=== PATIENT | female | born 1945 | race Two or more races ===

== ENCOUNTER → 2022-08-31 | Outpatient (CLI) | payer OTHER ==
[~2022-08-31] VITALS: Ht 154.9 cm; Wt 62.1 kg
[~2022-08-31] MED LIST: AMLO1TAB22 PO; ASPI81CH59 PO; CHOL25CH3 PO; CINN500T PO; CYAN50008 PO; FLUO20TA36 PO; FOLI-119 PO; GINK120C3 PO; GLIP5TAB12 PO; LOSA50TA46 PO; MAGN400T40 OR; METF-372 PO; METH2.5T PO; METH50006 SL; MULT-1166 PO; MULT1TAB70 PO; OMEG-28 PO; PRE5T PO; SIMV20TA20 PO; THIA100T26 PO; TRAZ1TAB12 PO; TURM500C3 OR; VITA-89 PO
[2022-08-31 11:20] LABS: Basophils # (auto) 0.1 10 ^3/uL (0-0.2); Basophils % (auto) 0.7 % (0.0-2.0); Eosinophils # (auto) 0 10 ^3/uL (0-0.8); Eosinophils % (auto) 0.3 % (0.0-7.0); Hematocrit 39.6 % (36.0-46.0); Hemoglobin 13.6 g/dL (12.2-16.2); Lymphocytes # (auto) 1.4 10 ^3/uL (0.4-5.4); Lymphocytes % (auto) 17.9 % (10.0-50.0); Mean Corpuscular Hgb Conc. 34.2 g/dL (32.0-36.0); Mean Corpuscular Volume 96.5 fL (80.0-100.0); Monocytes # (auto) 0.4 10 ^3/uL (0-1.3); Monocytes % (auto) 5.3 % (0.0-12.0); Neutrophils # (auto) 5.8 10 ^3/uL (1.6-8.6); Neutrophils % (auto) 75.8 % (37.0-80.0); Red Blood Cells 4.11 10^6/uL (4.0-5.20); Red Cell Distribution Width 15.7 % (11.8-14.3); White Blood Cell 7.7 10^3/uL (4.4-10.8)
[2022-08-31 11:26] LABS: INR 1.07 (0.9-1.15); Partial Thromboplastin Time 28.2 SEC (24.5-34.5); Prothrombin Time 11.2 sec (9.3-11.8)
[2022-08-31 11:32] LABS: Urine Bacteria MOD /hpf (None Seen); Urine Blood Negative /uL (Negative); Urine Clarity Clear (Clear); Urine Color Yellow (Yellow); Urine Hyaline Cast FEW /lpf (0 - 2); Urine Mucus FEW (None Seen); Urine Protein, UAD Negative (Negative); Urine Specific Gravity 1.011 (1.001-1.035); Urine Urobilinogen Normal (Negative); Urine WBC 32 /hpf (0 - 5); Urine pH 7.5 (5.0-8.0)
[2022-08-31 11:40] LABS: BUN/Creatinine Ratio 14.7 (10.0-20.0); Bilirubin, Total 0.6 mg/dL (0.2-1.0); Calcium 9.8 mg/dL (8.5-10.1); Total Protein 7.6 g/dL (6.4-8.2)
== END | disposition home or self-care (01) ==
LOC: SUR 09:27 → EDSTATUS 09-01 09:30
PROVIDERS: ATTEND Orthopaedic Surgery
DX: Z01.812 Encounter for preprocedural laboratory examination (principal); Z79.899 Other long term (current) drug therapy
CPT/HCPCS: 36415; 80053; 81001; 85025; 85610; 85730; 86850; 86900; 86901

== ENCOUNTER 2022-11-29 08:28 | Inpatient (IN) | payer OTHER ==
[2022-11-25 10:31] LABS: Basophils # (auto) 0.1 10 ^3/uL (0-0.2); Basophils % (auto) 0.8 % (0.0-2.0); Eosinophils # (auto) 0 10 ^3/uL (0-0.8); Eosinophils % (auto) 0.4 % (0.0-7.0); Hemoglobin 13.3 g/dL (12.2-16.2); Lymphocytes # (auto) 1.9 10 ^3/uL (0.4-5.4); Lymphocytes % (auto) 28.1 % (10.0-50.0); Mean Corpuscular Hemoglobin 32.7 pg (28.0-32.0); Mean Corpuscular Hgb Conc. 34.9 g/dL (32.0-36.0); Mean Corpuscular Volume 93.6 fL (80.0-100.0); Monocytes # (auto) 0.4 10 ^3/uL (0-1.3); Monocytes % (auto) 5.4 % (0.0-12.0); Neutrophils # (auto) 4.3 10 ^3/uL (1.6-8.6); Neutrophils % (auto) 65.3 % (37.0-80.0); Red Blood Cells 4.06 10^6/uL (4.0-5.20); Red Cell Distribution Width 15.5 % (11.8-14.3); White Blood Cell 6.7 10^3/uL (4.4-10.8)
[2022-11-25 10:36] LABS: INR 1.11 (0.9-1.15); Prothrombin Time 11.6 sec (9.3-11.8)
[2022-11-25 10:39] LABS: Alanine Aminotransferase 15 U/L (7-40); Albumin 4.7 g/dL (3.2-4.8); Alkaline Phosphatase 56 U/L (46-116); Anion Gap 9 (5-15); Aspartate Aminotransferase 19 U/L (13-40); BUN/Creatinine Ratio 9.9 (10.0-20.0); Bilirubin, Total 0.9 mg/dL (0.2-1.0); Blood Urea Nitrogen 9 mg/dL (9-23); Calcium 9.6 mg/dL (8.5-10.1); Carbon Dioxide 25 mmol/L (20-30); Chloride 102 mmol/L (98-107); Glucose 103 mg/dL (74-106); Potassium 4.4 mmol/L (3.5-5.1); Sodium 136 mmol/L (136-145); Total Protein 7.5 g/dL (5.7-8.2)
[2022-11-25 10:42] LABS: Urine Bacteria MOD /hpf (None Seen); Urine Blood Negative /uL (Negative); Urine Clarity Clear (Clear); Urine Color Colorless (Yellow); Urine Protein, UAD Negative (Negative); Urine Specific Gravity 1.012 (1.001-1.035); Urine Urobilinogen Normal (Negative); Urine WBC 5 /hpf (0 - 5); Urine pH 6.5 (5.0-8.0)
[~2022-11-29] VITALS: Ht 157.5 cm; Wt 61.4 kg
[~2022-11-29 08:28] MED LIST changes: -AMLO1TAB22 PO; -METH2.5T PO; -PRE5T PO
[2022-11-29 11:40] VITALS: RESP 23; O2SAT 100
[2022-11-29] MEDS ORDERED: VANCOMYCIN HCL 1000 MG VL ONE (11:50)
[2022-11-29] MEDS ORDERED: TRANEXAMIC ACID 20 ML ONE (11:59)
[2022-11-29] MEDS ORDERED: SUCCINYLCHOLINE CHLORIDE 20 MG/ML 10ML VIAL IV ONE (12:24)
[2022-11-29] MEDS ORDERED: fentaNYL CITRATE 5 ML ONE (12:27)
[2022-11-29] MEDS ORDERED: fentaNYL CITRATE 100 MCG/2 ML VL ONE ×2 (12:29→14:41)
[2022-11-29] MEDS ORDERED: PROPOFOL 10 MG/ML 20 ML IV ONE ×3 (12:31→12:34)
[2022-11-29] MEDS ORDERED: MORPHINE SULFATE INJ 2 MG/ml SYRG IV PRN ×2 (13:00)
[2022-11-29] MEDS ORDERED: NITROGLYCERIN 0.4 MG SL TAB SL PRN (13:00)
[2022-11-29] MEDS ORDERED: ONDANSETRON HCL 4 MG/2 ML VIAL IV PRN ×2 (13:00→16:15)
[2022-11-29] MEDS ORDERED: ONDANSETRON HCL 4 MG/2 ML VIAL ONE (13:08)
[2022-11-29] MEDS ORDERED: DexAMETHasone SOD PHOS 10MG/1ML VIAL INJ ONE (13:08)
[2022-11-29] MEDS ORDERED: ePHEDrine SULFATE 50 MG/ML AMP ONE (13:09)
[2022-11-29] MEDS ORDERED: PHENYLEPHRINE HCL 10 MG/ML VL ONE (13:38)
[2022-11-29] MEDS: CYCLOBENZAPRINE HCL 10 MG TAB PO SCH ×3 (14:30→21:43)
[2022-11-29] MEDS ORDERED: HYDROmorphone HCL 2 MG/ML VL/or syr IV PRN (16:15)
[2022-11-29] MEDS ORDERED: MEPERIDINE HCL (25 MG/ML) 1ML VIAL IV PRN (16:15)
[2022-11-29] MEDS ORDERED: DEXTROSE (50%) 50ML SYRG IV PRN (16:30)
[2022-11-29] MEDS ORDERED: cefTRIAXone 1GM/50ML D5W 50 ML IV ONE (16:30)
[2022-11-29] MEDS: HYDROcodone-ACET 10/325MG TAB PO PRN (17:00)
[2022-11-29 17:45] VITALS: PULSE 101
[2022-11-29] MEDS: ACCU-CHEK COMFORT CURVE STRIP VI SCH ×2 (17:46→23:30)
[2022-11-29] MEDS: D5W/SOD CHLO 0.9% 1,000 ML IV SCH (17:46)
[2022-11-29] MEDS: InsuLIN REG 1unit/0.01ml Soln (100units/ml) SC SCH ×2 (17:54→23:22)
[2022-11-29 20:20] VITALS: BP 121/54; PULSE 104; PULSE 97; RESP 17; TEMP 97.9; O2SAT 98
[2022-11-29] MEDS: DOCUSATE SOD 100 MG CAP PO SCH (21:43)
[2022-11-29] MEDS: VANCOMYCIN 1GM/250ML 250 ML IV SCH (21:44)
[2022-11-29 23:29] VITALS: BP 121/54; PULSE 104; RESP 17; TEMP 97.9; O2SAT 98
[2022-11-30] VITALS (7 sets, daily range): BP systolic 96–114; BP diastolic 45–47; PULSE 74–94; RESP 16–18; TEMP 98.1–99.4; O2SAT 96–99
[2022-11-30] MEDS: D5W/SOD CHLO 0.9% 1,000 ML IV SCH ×2 (03:44→08:39)
[2022-11-30] MEDS: HYDROcodone-ACET 10/325MG TAB PO PRN ×2 (03:53→17:51)
[2022-11-30] MEDS: ACCU-CHEK COMFORT CURVE STRIP VI SCH ×3 (05:56→17:45)
[2022-11-30] MEDS: CYCLOBENZAPRINE HCL 10 MG TAB PO SCH ×3 (05:56→22:02)
[2022-11-30] MEDS: InsuLIN REG 1unit/0.01ml Soln (100units/ml) SC SCH ×3 (05:56→17:45)
[2022-11-30 07:16] LABS: Basophils # (auto) 0 10 ^3/uL (0-0.2); Basophils % (auto) 0.1 % (0.0-2.0); Eosinophils # (auto) 0 10 ^3/uL (0-0.8); Hematocrit 29.6 % (36.0-46.0); Hemoglobin 10.3 g/dL (12.2-16.2); Lymphocytes # (auto) 1.1 10 ^3/uL (0.4-5.4); Lymphocytes % (auto) 13.9 % (10.0-50.0); Mean Corpuscular Hemoglobin 32.8 pg (28.0-32.0); Mean Corpuscular Hgb Conc. 34.8 g/dL (32.0-36.0); Mean Corpuscular Volume 94.3 fL (80.0-100.0); Monocytes # (auto) 0.4 10 ^3/uL (0-1.3); Monocytes % (auto) 5.3 % (0.0-12.0); Neutrophils # (auto) 6.7 10 ^3/uL (1.6-8.6); Neutrophils % (auto) 80.7 % (37.0-80.0); Red Blood Cells 3.14 10^6/uL (4.0-5.20); Red Cell Distribution Width 15.5 % (11.8-14.3); White Blood Cell 8.3 10^3/uL (4.4-10.8)
[2022-11-30 07:17] LABS: Alanine Aminotransferase 47 U/L (7-40); Albumin 3.4 g/dL (3.2-4.8); Alkaline Phosphatase 45 U/L (46-116); Anion Gap 7 (5-15); Aspartate Aminotransferase 54 U/L (13-40); BUN/Creatinine Ratio 12.5 (10.0-20.0); Blood Urea Nitrogen 8 mg/dL (9-23); Calcium 8.1 mg/dL (8.5-10.1); Carbon Dioxide 24 mmol/L (20-30); Chloride 106 mmol/L (98-107); Glucose 163 mg/dL (74-106); Sodium 137 mmol/L (136-145)
[2022-11-30 07:18] LABS: Bilirubin, Total 0.6 mg/dL (0.2-1.0); Total Protein 5.5 g/dL (5.7-8.2)
[2022-11-30] MEDS: DOCUSATE SOD 100 MG CAP PO SCH ×2 (08:39→22:02)
[2022-11-30] MEDS: cefTRIAXone 1GM/50ML D5W 50 ML IV SCH (08:39)
[2022-11-30] MEDS: VANCOMYCIN 1GM/250ML 250 ML IV SCH (09:51)
[2022-11-30] MEDS ORDERED: LOSARTAN POTASSIUM 50 MG TAB PO SCH (10:00)
[2022-12-01] VITALS (7 sets, daily range): BP systolic 117–143; BP diastolic 50–72; PULSE 82–97; RESP 16–20; TEMP 97.9–99; O2SAT 94–99
[2022-12-01] MEDS: ACCU-CHEK COMFORT CURVE STRIP VI SCH ×5 (01:03→22:13)
[2022-12-01] MEDS: InsuLIN REG 1unit/0.01ml Soln (100units/ml) SC SCH ×5 (06:00→22:19)
[2022-12-01] MEDS: CYCLOBENZAPRINE HCL 10 MG TAB PO SCH ×3 (06:15→22:13)
[2022-12-01 06:45] LABS: Alanine Aminotransferase 29 U/L (7-40); Albumin 3.6 g/dL (3.2-4.8); Alkaline Phosphatase 49 U/L (46-116); Anion Gap 5 (5-15); Aspartate Aminotransferase 26 U/L (13-40); Blood Urea Nitrogen 6 mg/dL (9-23); Calcium 8.5 mg/dL (8.7-10.4); Carbon Dioxide 27 mmol/L (20-30); Chloride 107 mmol/L (98-107); Potassium 3.6 mmol/L (3.5-5.1); Sodium 139 mmol/L (136-145)
[2022-12-01 06:46] LABS: Bilirubin, Total 0.6 mg/dL (0.2-1.0); Total Protein 5.7 g/dL (5.7-8.2)
[2022-12-01 07:02] LABS: Basophils # (auto) 0 10 ^3/uL (0-0.2); Basophils % (auto) 0.4 % (0.0-2.0); Eosinophils # (auto) 0.1 10 ^3/uL (0-0.8); Eosinophils % (auto) 0.7 % (0.0-7.0); Hemoglobin 10.4 g/dL (12.2-16.2); Lymphocytes # (auto) 2.1 10 ^3/uL (0.4-5.4); Lymphocytes % (auto) 28.6 % (10.0-50.0); Mean Corpuscular Hemoglobin 32.5 pg (28.0-32.0); Mean Corpuscular Hgb Conc. 34.6 g/dL (32.0-36.0); Mean Corpuscular Volume 93.9 fL (80.0-100.0); Monocytes # (auto) 0.6 10 ^3/uL (0-1.3); Monocytes % (auto) 7.4 % (0.0-12.0); Neutrophils # (auto) 4.7 10 ^3/uL (1.6-8.6); Neutrophils % (auto) 62.9 % (37.0-80.0); Red Cell Distribution Width 15.3 % (11.8-14.3); White Blood Cell 7.5 10^3/uL (4.4-10.8)
[2022-12-01 07:56] LABS: Glucose 113 mg/dL (74-106)
[2022-12-01] MEDS: DOCUSATE SOD 100 MG CAP PO SCH ×2 (09:04→22:13)
[2022-12-01] MEDS: cefTRIAXone 1GM/50ML D5W 50 ML IV SCH (09:04)
[2022-12-01] MEDS: HYDROcodone-ACET 10/325MG TAB PO PRN ×2 (09:04→22:13)
[2022-12-01] MEDS: LOSARTAN POTASSIUM 50 MG TAB PO SCH (09:05)
[2022-12-02] MEDS: CYCLOBENZAPRINE HCL 10 MG TAB PO SCH ×3 (05:22→21:26)
[2022-12-02] MEDS: ACCU-CHEK COMFORT CURVE STRIP VI SCH ×4 (05:22→21:41)
[2022-12-02] MEDS: InsuLIN REG 1unit/0.01ml Soln (100units/ml) SC SCH ×4 (05:26→21:45)
[2022-12-02 09:00] VITALS: BP 134/52; PULSE 82; RESP 18; TEMP 99.2; O2SAT 94
[2022-12-02] MEDS: DOCUSATE SOD 100 MG CAP PO SCH ×2 (10:08→21:26)
[2022-12-02] MEDS: LOSARTAN POTASSIUM 50 MG TAB PO SCH (10:09)
[2022-12-02] MEDS: cefTRIAXone 1GM/50ML D5W 50 ML IV SCH (10:09)
[2022-12-02] MEDS: ACETAMINOPHEN 325 MG TAB PO PRN (12:14)
[2022-12-02 13:00] VITALS: BP 140/62; PULSE 86; RESP 20; TEMP 98.3; O2SAT 97
[2022-12-02] MEDS: HYDROcodone-ACET 10/325MG TAB PO PRN ×2 (15:50→21:27)
[2022-12-02 17:00] VITALS: BP 121/57; PULSE 80; RESP 18; TEMP 98.4; O2SAT 97
[2022-12-02 22:07] VITALS: BP 110/51; PULSE 84; RESP 17; TEMP 98.4; O2SAT 96
[2022-12-03] VITALS (7 sets, daily range): BP systolic 109–129; BP diastolic 49–57; PULSE 83–89; RESP 16–20; TEMP 97.8–98.6; O2SAT 96–99
[2022-12-03] MEDS: CYCLOBENZAPRINE HCL 10 MG TAB PO SCH ×3 (05:54→21:40)
[2022-12-03] MEDS: InsuLIN REG 1unit/0.01ml Soln (100units/ml) SC SCH ×4 (05:57→23:17)
[2022-12-03] MEDS: ACCU-CHEK COMFORT CURVE STRIP VI SCH ×4 (05:57→23:17)
[2022-12-03 06:19] LABS: Basophils # (auto) 0 10 ^3/uL (0-0.2); Basophils % (auto) 0.6 % (0.0-2.0); Eosinophils # (auto) 0.2 10 ^3/uL (0-0.8); Eosinophils % (auto) 2.6 % (0.0-7.0); Hematocrit 30.1 % (36.0-46.0); Hemoglobin 10.6 g/dL (12.2-16.2); Lymphocytes # (auto) 1.8 10 ^3/uL (0.4-5.4); Mean Corpuscular Hemoglobin 32.7 pg (28.0-32.0); Mean Corpuscular Hgb Conc. 35.3 g/dL (32.0-36.0); Mean Corpuscular Volume 92.6 fL (80.0-100.0); Monocytes # (auto) 0.4 10 ^3/uL (0-1.3); Monocytes % (auto) 5.3 % (0.0-12.0); Neutrophils # (auto) 4.6 10 ^3/uL (1.6-8.6); Neutrophils % (auto) 65.5 % (37.0-80.0); Nucleated Red Blood Cells % 0.1 %; Red Blood Cells 3.26 10^6/uL (4.0-5.20); Red Cell Distribution Width 15.1 % (11.8-14.3)
[2022-12-03 06:38] LABS: Alanine Aminotransferase 24 U/L (7-40); Albumin 3.7 g/dL (3.2-4.8); Alkaline Phosphatase 52 U/L (46-116); Anion Gap 7 (5-15); Aspartate Aminotransferase 17 U/L (13-40); BUN/Creatinine Ratio 11.9 (10.0-20.0); Blood Urea Nitrogen 7 mg/dL (9-23); Calcium 8.6 mg/dL (8.7-10.4); Carbon Dioxide 27 mmol/L (20-30); Chloride 103 mmol/L (98-107); Glucose 123 mg/dL (74-106); Potassium 3.1 mmol/L (3.5-5.1); Sodium 137 mmol/L (136-145)
[2022-12-03 06:39] LABS: Bilirubin, Total 0.7 mg/dL (0.2-1.0); Total Protein 6.1 g/dL (5.7-8.2)
[2022-12-03] MEDS: DOCUSATE SOD 100 MG CAP PO SCH ×2 (11:29→21:40)
[2022-12-03] MEDS: ACETAMINOPHEN 325 MG TAB PO PRN (11:29)
[2022-12-03] MEDS: cefTRIAXone 1GM/50ML D5W 50 ML IV SCH (11:30)
[2022-12-03] MEDS: LOSARTAN POTASSIUM 50 MG TAB PO SCH (11:33)
[2022-12-03] MEDS: HYDROcodone-ACET 10/325MG TAB PO PRN (13:12)
[2022-12-03] MEDS ORDERED: POTASSIUM EFFERVESENT TAB 25 MEQ GT ONE (16:30)
[2022-12-04] VITALS (7 sets, daily range): BP systolic 98–120; BP diastolic 47–62; PULSE 81–85; RESP 16–18; TEMP 98.2–98.9; O2SAT 98–99
[2022-12-04] MEDS: ACETAMINOPHEN 325 MG TAB PO PRN (00:29)
[2022-12-04] MEDS: CYCLOBENZAPRINE HCL 10 MG TAB PO SCH ×3 (05:14→21:21)
[2022-12-04] MEDS: InsuLIN REG 1unit/0.01ml Soln (100units/ml) SC SCH ×4 (05:14→23:47)
[2022-12-04] MEDS: ACCU-CHEK COMFORT CURVE STRIP VI SCH ×4 (05:14→23:46)
[2022-12-04 06:07] LABS: Anion Gap 5 (5-15); Calcium 8.6 mg/dL (8.7-10.4); Carbon Dioxide 29 mmol/L (20-30); Chloride 104 mmol/L (98-107); Potassium 3.9 mmol/L (3.5-5.1); Sodium 138 mmol/L (136-145)
[2022-12-04 06:13] LABS: BUN/Creatinine Ratio 10.3 (10.0-20.0); Blood Urea Nitrogen 6 mg/dL (9-23); Glucose 121 mg/dL (74-106)
[2022-12-04] MEDS: cefTRIAXone 1GM/50ML D5W 50 ML IV SCH (08:44)
[2022-12-04] MEDS: DOCUSATE SOD 100 MG CAP PO SCH ×2 (10:56→21:21)
[2022-12-04] MEDS: LOSARTAN POTASSIUM 50 MG TAB PO SCH (10:58)
[2022-12-04] MEDS: HYDROcodone-ACET 10/325MG TAB PO PRN (14:51)
[2022-12-05 04:54] VITALS: BP 111/62; PULSE 86; RESP 16; TEMP 98.7; O2SAT 95
[2022-12-05] MEDS: ACETAMINOPHEN 325 MG TAB PO PRN ×2 (05:16→14:03)
[2022-12-05] MEDS: CYCLOBENZAPRINE HCL 10 MG TAB PO SCH ×2 (05:16→14:03)
[2022-12-05] MEDS: ACCU-CHEK COMFORT CURVE STRIP VI SCH ×2 (05:17→12:00)
[2022-12-05] MEDS: InsuLIN REG 1unit/0.01ml Soln (100units/ml) SC SCH ×2 (05:27→12:00)
[2022-12-05 06:31] LABS: Chloride 103 mmol/L (98-107); Potassium 3.8 mmol/L (3.5-5.1); Sodium 138 mmol/L (136-145)
[2022-12-05 06:32] LABS: Anion Gap 9 (5-15); Carbon Dioxide 26 mmol/L (20-30)
[2022-12-05 06:37] LABS: BUN/Creatinine Ratio 10.9 (10.0-20.0); Blood Urea Nitrogen 7 mg/dL (9-23); Glucose 137 mg/dL (74-106)
[2022-12-05 08:00] VITALS: RESP 17
[2022-12-05 09:00] VITALS: BP 117/59; PULSE 85; RESP 16; TEMP 98.2; O2SAT 96
[2022-12-05] MEDS: DOCUSATE SOD 100 MG CAP PO SCH (09:00)
[2022-12-05] MEDS: cefTRIAXone 1GM/50ML D5W 50 ML IV SCH (09:00)
[2022-12-05] MEDS: LOSARTAN POTASSIUM 50 MG TAB PO SCH (09:01)
[2022-12-05] MEDS: HYDROcodone-ACET 10/325MG TAB PO PRN (10:00)
== END 2022-12-05 15:53 | disposition home health service (06) | DRG 460 ==
LOC: SUR 08:28 → TELE 12:54 → TELE-WESTW 17:35 → WEST WING 12-01 23:09
PROVIDERS: ADMIT Orthopaedic Surgery; ATTEND Internal Medicine
PROC: 0SG0071 Fusion of Lumbar Vertebral Joint with Autologous Tissue Substitute, Posterior Approach, Posterior Column, Open Approach (ICD-10-PCS; principal; 2022-12-01)
PROC: 01NB0ZZ Release Lumbar Nerve, Open Approach (ICD-10-PCS; 2022-12-01)
PROC: 00NY0ZZ Release Lumbar Spinal Cord, Open Approach (ICD-10-PCS; 2022-12-01)
PROC: 4A11X4G Monitoring of Peripheral Nervous Electrical Activity, Intraoperative, External Approach (ICD-10-PCS; 2022-12-01)
DX: M96.1 Postlaminectomy syndrome, not elsewhere classified (principal); N39.0 Urinary tract infection, site not specified; E11.9 Type 2 diabetes mellitus without complications; E78.5 Hyperlipidemia, unspecified; I10 Essential (primary) hypertension; Z88.0 Allergy status to penicillin; Z79.4 Long term (current) use of insulin
CPT/HCPCS: 36415; 72100; 76000; 80048; 80053; 81001; 82962; 83036; 85025; 85610; 85730; 86850; 86900; 86901; 87086; 97110; 97116; 97163; 97530; G0378; J0330; J0696; J1100; J1815; J2405; J2704; J7042

== ENCOUNTER 2023-01-10 10:35 | Emergency (ER) | payer OTHER ==
[~2023-01-10] VITALS: Ht 157.5 cm; Wt 60.0 kg
[2023-01-10 12:00] LABS: Basophils # (auto) 0 10 ^3/uL (0-0.2); Basophils % (auto) 0.3 % (0.0-2.0); Eosinophils # (auto) 0 10 ^3/uL (0-0.8); Hematocrit 35.9 % (36.0-46.0); Hemoglobin 12.7 g/dL (12.2-16.2); Lymphocytes # (auto) 1.3 10 ^3/uL (0.4-5.4); Lymphocytes % (auto) 12.3 % (10.0-50.0); Mean Corpuscular Hemoglobin 30.6 pg (28.0-32.0); Mean Corpuscular Hgb Conc. 35.2 g/dL (32.0-36.0); Mean Corpuscular Volume 86.7 fL (80.0-100.0); Monocytes # (auto) 0.5 10 ^3/uL (0-1.3); Monocytes % (auto) 5.3 % (0.0-12.0); Neutrophils # (auto) 8.4 10 ^3/uL (1.6-8.6); Neutrophils % (auto) 82.1 % (37.0-80.0); Nucleated Red Blood Cells % 0.1 %; Red Blood Cells 4.14 10^6/uL (4.0-5.20); White Blood Cell 10.3 10^3/uL (4.4-10.8)
[2023-01-10 12:14] LABS: Alanine Aminotransferase 11 U/L (7-40); Albumin 4.5 g/dL (3.2-4.8); Alkaline Phosphatase 71 U/L (46-116); Anion Gap 8 (5-15); Aspartate Aminotransferase 19 U/L (13-40); BUN/Creatinine Ratio 10.2 (10.0-20.0); Bilirubin, Total 0.7 mg/dL (0.2-1.0); Blood Urea Nitrogen 6 mg/dL (9-23); Calcium 9.4 mg/dL (8.5-10.1); Carbon Dioxide 29 mmol/L (20-30); Chloride 103 mmol/L (98-107); Creatine Kinase IFCC 134 U/L (34-145); Glucose 126 mg/dL (74-106); Potassium 2.8 mmol/L (3.5-5.1); Sodium 140 mmol/L (136-145); Total Protein 7.3 g/dL (5.7-8.2)
[2023-01-10] MEDS ORDERED: HYDROcodone-ACET 5/325MG TAB PO ONE (18:00)
[2023-01-10] MEDS ORDERED: POTASSIUM CHL 20 Meq TABLET PO ONE (20:15)
[2023-01-10 22:42] VITALS: BP 145/73; PULSE 84; RESP 16; TEMP 98.7; O2SAT 97
== END 2023-01-10 23:02 | disposition home or self-care (01) ==
LOC: EDBD 10:35 → ER 10:35
DX: S40.012A Contusion of left shoulder, initial encounter (principal); E87.6 Hypokalemia; M25.512 Pain in left shoulder; R91.1 Solitary pulmonary nodule; I10 Essential (primary) hypertension; R51.9 Headache, unspecified; E11.9 Type 2 diabetes mellitus without complications; Z98.890 Other specified postprocedural states; Z88.8 Allergy status to other drugs, medicaments and biological substances; Z79.899 Other long term (current) drug therapy; W01.0XXA Fall on same level from slipping, tripping and stumbling without subsequent striking against object, initial encounter; Y93.01 Activity, walking, marching and hiking; Y92.091 Bathroom in other non-institutional residence as the place of occurrence of the external cause; Y99.8 Other external cause status
CPT/HCPCS: 36415; 70450; 71250; 72125; 73030; 73060; 73080; 73090; 74176; 80053; 82550; 82962; 84484; 85025; 93005